=== PATIENT | female | born 1955 | race Caucasian/White ===

== ENCOUNTER 2018-08-05 07:34 | Day surgery (SDC) | payer OTHER ==
[~2018-08-05] VITALS: Ht 165.1 cm; Wt 76.3 kg
[2018-08-05] VITALS (16 sets, daily range): BP systolic 108–158; BP diastolic 58–78; PULSE 66–90; RESP 12–33; Ht 165.1 cm; Wt 76.3 kg
[~2018-08-05 07:34] MED LIST: AZIT250T PO; EPHEDrine SULFATE 50 MG/5 ML SYG ONE; ROCURONIUM 50 MG INJ ONE; TRAM50TA2 PO
[2018-08-05] MEDS ORDERED: HYDR-3980 PO (08:37)
--- NOTE | 2018-08-05 08:37 | HPN ---
Date/Time of Note Date/Time of Note DATE: 08/05/18 TIME: 08:37 Interval H&P Admission Note Pt. seen H&P reviewed: No system changes IAN HERNÁNDEZ MD Aug 05, 2018 08:37
[2018-08-05] MEDS ORDERED: BACL10TA PO (08:38)
[2018-08-05] MEDS ORDERED: DOCU-144 PO (08:38)
[2018-08-05] MEDS ORDERED: DULO30CA47 PO (08:38)
[2018-08-05] MEDS ORDERED: ALBU18HF INHALATION (08:39)
[2018-08-05] MEDS ORDERED: TRAZ150T65 PO (08:40)
[2018-08-05] MEDS ORDERED: QUET25TA33 PO (08:40)
[2018-08-05] MEDS ORDERED: OMEP20CA16 PO (08:40)
[2018-08-05] MEDS ORDERED: METO-448 PO (08:41)
--- NOTE | 2018-08-05 09:13 | PREAC ---
Date/Time of Note Date/Time of Note DATE: 08/05/18 TIME: 09:10 Anesthesia Eval and Record Evaluation Time Pre-Procedure Interview DATE: 08/05/18 TIME: 09:10 Age 63 Sex female NPO: 8 hrs Preoperative diagnosis s/p Right Ankle Fracture Mal union Planned procedure Revision of Right Ankle ORIF Past Medical History Past Medical History: Includes Pulm: Smoking Hx, COPD, Asthma Heme: Anemia Infection(s): Hep C Surgery & Anesthesia Issues No known issue Meds Anticoagulation: No Beta Coleen within 24 hr: Yes Reported Medications Metoprolol Tartrate* (Lopressor*) 25 Mg Tab, 25 MG PO DAILY 08/05/18 Trazodone Hcl* (Desyrel*) 150 Mg Tablet, 150 MG PO QHS 08/05/18 Quetiapine Fumarate* (Quetiapine Fumarate*) 25 Mg Tablet, 25 MG PO BID 08/05/18 Omeprazole* (Omeprazole*) 20 Mg Capsule.dr, 20 MG PO AC BREAKFAST, #30 CAP 08/05/18 Albuterol Sulfate* (Ventolin HFA*) 18 Gm Hfa.aer.ad, 2 PUFF INHALATION Q6H PRN for WHEEZING AND SOB, #1 INHALER 08/05/18 Baclofen* (Baclofen*) 10 Mg Tablet, 10 MG PO BID 08/05/18 Docusate Sodium* (Colace*) 100 Mg Capsule, 100 MG PO DAILY PRN for CONSTIPATION, #30 CAP 08/05/18 Duloxetine Hcl* (Duloxetine Hcl*) 30 Mg Capsule.dr, 30 MG PO DAILY 08/05/18 Hydrocodone/Acetaminophen ([place] 10-325 Tablet) 1 Each Tablet, 1 EACH PO Q8 PRN for SEVERE PAIN LEVEL 7-10, TAB 08/05/18 Discontinued Scripts Tramadol HCl (Tramadol HCl) 50 Mg Tablet, 50 MG PO Q4 PRN for PAIN, #12 TAB Prov:SHANNON TAVERA PA-C 06/15/16 Azithromycin* (Zithromax*) 250 Mg Tablet, 250 MG PO .SanyaPACK DIRECTED, #6 TAB TAKE 500 MG (2 TABS) THE FIRST DAY THEN 250 MG (1 TAB) DAYS 2-5 Prov:SHANNON TAVERA PA-C 06/15/16 Meds reviewed: Yes Allergies Coded Allergies: Sulfamethoxazole (Verified Allergy, Unknown, 09/28/09) Trimethoprim (Verified Allergy, Unknown, 09/28/09) Allergies Reviewed: Yes Labs/Studies Labs Reviewed: Reviewed by anesthesiologist Result Diagram: 08/05/18 08 Laboratory Tests 08/05/18 08:05 test: N/A Studies: ECG (n/a), CXR (n/a) Pre-procedure Exam Airway: Adequate mouth opening, Adequate thyromental dist Mallampati: Mallampati II Teeth: Normal Lung: Normal Heart: Normal ASA Physical Status ASA physical status: 3 Emergency: None Planned Anesthetic General/MAC: ETT, LMA Nerve block: Femoral (right), Sciatic (right) Planned Pain Management Single shot nerve block Pre-operative Attestations Prior to commencing anesthesia and surgery, the patient was re-evaluated, there was verification of: *The patient's identity *The results of appropriate recent lab work and preoperative vital signs *The above evaluation not changing prior to induction *Anesthetic plan, risk benefits, alternative and complications discussed with patient/family; questions answered; patient/family understands, accepts and wishes to proceed. KELBY JOINER MD Aug 05, 2018 09:13
[2018-08-05] MEDS ORDERED: MIDAZOLAM 1 MG/ML 2 ML INJ ONE (09:14)
[2018-08-05] MEDS ORDERED: ROCURONIUM 50 MG INJ ONE (09:14)
[2018-08-05] MEDS ORDERED: CEFAZOLIN 1 GM INJ ONE (09:14)
[2018-08-05] MEDS ORDERED: PROPOFOL 20 ML ONE (09:14)
[2018-08-05] MEDS ORDERED: ROPIVACAINE 0.5 % 30 ML VIAL ONE (09:15)
[2018-08-05] MEDS ORDERED: PHENYLephrine (100 MCG/ML) 5ML SYG ONE (10:26)
[2018-08-05] MEDS ORDERED: POLYMYXIN/BACITRACIN 1L IRRIG IRR ONE (10:44)
[2018-08-05] MEDS ORDERED: POLYMYXIN/BACITRACIN 1L IRRIG ONE (10:45)
[2018-08-05] MEDS ORDERED: ONDANSETRON 4 MG INJ IV PRN (11:00)
[2018-08-05] MEDS ORDERED: FENTAnyl 50 MCG/ML VIAL IV PRN ×3 (11:00)
[2018-08-05] MEDS ORDERED: OXYCODONE/ACETAMINOPHEN (5/325) TAB PO PRN ×2 (11:00)
[2018-08-05] MEDS ORDERED: ALBUMIN HUMAN 5% 250 ML IV PRN (11:00)
[2018-08-05] MEDS ORDERED: HYDROmorphONE 1 MG/5 ML IV SYRINGE IV PRN ×3 (11:00)
[2018-08-05] MEDS ORDERED: METOCLOPRAMIDE 10 MG INJ IV PRN (11:00)
[2018-08-05] MEDS ORDERED: ALBUTEROL 0.083% (NEB) 2.5 MG/3 ML AMP HHN PRN (11:00)
[2018-08-05] MEDS ORDERED: MEPERIDINE 25 MG INJ IV PRN (11:00)
[2018-08-05] MEDS ORDERED: hydrALAzine 20 MG INJ IV PRN (11:00)
[2018-08-05] MEDS ORDERED: LABETALOL HCL 20MG INJ IV PRN (11:00)
[2018-08-05] MEDS ORDERED: DIPHENHYDRAMINE 50 MG INJ IV PRN (11:00)
[2018-08-05] MEDS ORDERED: EPHEDrine SULFATE 50 MG/5 ML SYG IV PRN (11:00)
[2018-08-05] MEDS ORDERED: IPRATROPIUM (NEB) 0.5 MG/2.5 ML AMP HHN PRN (11:00)
[2018-08-05] MEDS ORDERED: ONDANSETRON 4 MG INJ ONE (11:30)
[2018-08-05] MEDS ORDERED: HYDROCODONE/APAP (5/325) TAB PO PRN ×2 (11:30)
[2018-08-05] MEDS ORDERED: morphine 2 MG INJ IV PRN (11:30)
--- NOTE | 2018-08-05 11:30 | OPR ---
Date/Time of Note Date/Time of Note DATE: 08/05/18 TIME: 11:27 Operative Report Preoperative Diagnosis Right ankle trimalleolar fracture Postoperative Diagnosis Same Operation/Procedure Performed Revision open reduction internal fixation right ankle trimalleolar fracture Revision fixation of right ankle syndesmotic ligament injury Surgeon see signature line Combination Window Installer TRU Jimenez Anesthesia Type: general Tourniquet Time: No tourniquet was used Estimated Blood Loss: 10 - 50 ml's Transfusion none Specimen none Grafts/Implants none Complications none Pt Condition Post Procedure: stable Disposition: PACU Indications Ms. Jo Ann Cerrato is a 63-year-old female who previously underwent a open reduction internal fixation of the right ankle fracture she was subsequent found to have shifting of her talus with cut out of the medial malleolus screws she now presents for revision fixation Risks and benefits were discussed informed consent was obtained. Procedure Description The patient's correct extremity was identified in the preoperative area she is brought back to the operating where she had general internal anesthesia the right lower extremity was prepped and draped in the standard sterile manner. A timeout was performed. Both the medial lateral incisions were opened the tightrope was removed I then applied a clamp and closed the medial clear space down to obtain a symmetric mortise I then put to 3.5 millimeters screws from [employer] from lateral to medial fixing the syndesmotic injury and closing the medial clear space. Previous to this I did remove 2 medial screws after reduction of the mortise the medial malleolus fracture was found it was found to be comminuted the largest piece was then reapproximated to the distal tibia and 2 screws were placed these were [employer] 4.0 mm cannulated screws this allowed fixation of the medial malleolus x-ray showed good position of all screws and a symmetric mortise at this point I thoroughly irrigated the wounds close the wounds with 2-0 nylon dry sterile dressings were applied patient was placed in a posterior splint her toes are warm well perfused IAN HERNÁNDEZ MD Aug 05, 2018 11:30
[2018-08-05] MEDS ORDERED: METOCLOPRAMIDE 10 MG INJ ONE (11:31)
[2018-08-05] MEDS ORDERED: KETOROLAC 30 MG INJ ONE (11:31)
[2018-08-05] MEDS ORDERED: DEXAMETHASONE 4 MG/ML 5 ML INJ ONE (11:31)
[2018-08-05] MEDS ORDERED: NEOSTIGMINE 3 MG/3 ML SYRINGE ONE (11:40)
[2018-08-05] MEDS ORDERED: GLYCOPYRROLATE 0.4 MG INJ ONE (11:40)
--- NOTE | 2018-08-05 11:58 | NUR ---
PACU RECEIVED PT FROM OR VIA CODY SLEEPY BUT AROUSABLE, S/P Revision open reduction internal fixation right ankle trimalleolar fracture, RT LEG DRESSING C/D/I, WITH SPLINT ON. ABLE TO WIGGLE THE TOES ARE EXPOSED WITH GOOD CAPILLARY REFILL. KEPT RLE ELEVATED ON PILLOWS.VSS. DENIES PAIN @ THIS TIME. KEPT PT WARM & COMFORTABLE.
--- NOTE | 2018-08-05 12:01 | PAC ---
Date/Time of Note Date/Time of Note DATE: 08/05/18 TIME: 12:01 Post-Anesthesia Notes Post-Anesthesia Note Last documented vital signs Vital Signs Date Temp Pulse Resp B/P (MAP) Pulse Ox O2 O2 Flow FiO2 Time Delivery Rate 08/05/18 98.1 79 18 112/69 97 Room Air 12:08 (83) Activity: WNL Respiratory function: WNL Cardiovascular function: WNL Mental status: Baseline Pain reasonably controlled: Yes Hydration appropriate: Yes Nausea/Vomiting absent: Yes KELBY JOINER MD Aug 05, 2018 12:01
--- NOTE | 2018-08-05 13:20 | NUR ---
PACU VSS. RESTING COMFORTABLY. RLE DRESSING D/C/I. VOIDED TWICE. REPORT CALLED TO [facility].TRANSFERRED PT TO [facility] VIA GURNEY IN STABLE CONDITION.
--- NOTE | 2018-08-05 13:25 | NUR ---
PT IS S/P ORIF RT ANKLE. PLASTER SPLINT COVERED IN REINA WRAP. SPLINT IS DAMP. AFTER PT WENT TO THE BATHROOM W/C SOME LIGHT-PINK DRAINAGE NOTED ON HEEL. / BETTY NOTIFIED AND REINA WRAP REPLACED AND DRESSING REINFORCED. PT GIVEN D/C INSTRUCTIONS AND F/U APPT DISCUSSED. PT REMINDED TO KEEP RT ANKLE ELEVATED.
--- NOTE | 2018-08-05 16:15 | NUR ---
PT WAITED FOR TWO HOURS FOR RIDE HOME. LUNCH PROVIDED.
== END 2018-08-05 16:15 | disposition home or self-care (01) ==
LOC: SDS 07:34
PROVIDERS: ATTEND Specialist
DX: S82.851D Displaced trimalleolar fracture of right lower leg, subsequent encounter for closed fracture with routine healing (principal); X58.XXXD Exposure to other specified factors, subsequent encounter
CPT/HCPCS: 27822; 71045; 73600; 73610; 80053; 85025; 85610; 85730; 86850; 86900; 86901; 88300; C1713; J0690; J1100; J1885; J2250; J2370; J2405; J2710; J2765; J2795; J3010; Z7512; Z7610